=== PATIENT | male | born 1950 | race Caucasian/White ===

== ENCOUNTER 2017-06-19 20:20 | Emergency (ER) | payer MEDICARE, OTHER ==
[2017-06-19 20:37] VITALS: BP 125/87
[2017-06-19] MEDS ORDERED: SODIUM CHLORIDE 0.9% 1,000 ML IV ONE (20:44)
[2017-06-19] MEDS ORDERED: LOPERAMIDE 2 MG CAPSULE PO STA (20:44)
--- NOTE | 2017-06-19 20:45 | ED Physician Documentation ---
PD HPI NVD - Stated complaint Stated Complaint: DIARRHEA - Chief complaint Chief Complaint: Abd Pain - History obtained from History obtained from: Patient, Family - History of Present Illness Timing - onset: How many days ago (3) Timing - details: Gradual onset, Still present Associated symptoms: No: Abdominal pain, Chest pain Contributing factors: No: Sick contact, Bad food, Travel, Recent antibiotics, Alcohol use Similar symptoms before: Has not had sx before Recently seen: Not recently seen - Additonal information Additional information: Patient is a 67 year old male with no significant past medical history who is presenting to the emergency department for diarrhea. Patient states that the symptoms have been going on for the last two days. patient states that everything he eats or drinks comes right back out. patient reports tactile fevers on the first day, but nothing for the last two days. patient denies, nausea, vomiting or abdominal pain. Review of Systems Ten Systems: 10 systems reviewed and negative Constitutional: reports: Fever Cardiac: denies: Chest pain / pressure, Palpitations GI: reports: Diarrhea. denies: Abdominal Pain, Nausea, Vomiting : denies: Dysuria, Frequency Skin: denies: Rash, Lesions Immunocompromised: denies: Immunocompromised PD PAST MEDICAL HISTORY - Past Medical History Cardiovascular: Hypertension - Past Surgical History Past Surgical History: Yes General: Cholecystectomy HEENT: Tonsil/Adenoidectomy - Present Medications Home Medications: Ambulatory Orders Medication Instructions Recorded Confirmed HYDROcod/ACETAM 5/325 [[place] 5/325] 1 - 2 ea PO Q6H PRN #15 tablet 01/09/16 Ciprofloxacin HCl [Cipro] 500 mg PO BID #10 tablet 06/19/17 Metronidazole [Flagyl] 500 mg PO TID #15 tablet 06/19/17 - Allergies Allergies/Adverse Reactions: Allergies Allergy/AdvReac Type Severity Reaction Status Date / Time No Known Drug Allergies Allergy Verified 06/19/17 20:37 - Social History Does the pt smoke?: No Smoking Status: Former smoker Does the pt drink ETOH?: Yes Does the pt have substance abuse?: Yes - Immunizations Immunizations are current?: Yes PD ED PE NORMAL - General General: Alert and oriented X 3, No acute distress - HEENT HEENT: Atraumatic - Neck Neck: Supple, no meningeal sign - Cardiac Cardiac: RRR, No murmur - Respiratory Respiratory: No respiratory distress - Abdomen Abdomen: Soft, Non tender, Non distended - Derm Derm: Normal color, Warm and dry, No rash - Extremities Extremities: No deformity - Neuro Neuro: Alert and oriented X 3, No motor deficit, Normal speech Eye Opening: Spontaneous - Psych Psych: Normal mood PD ED PE EXPANDED - HEENT HEENT: Dry mucous membranes Results - Vitals Vitals: Vital Signs - 24 hr 06/19/17 20:35 Temperature 37.7 C H Heart Rate 92 Respiratory 17 Rate Blood Pressure 125/87 H O2 Saturation 99 Oxygen O2 Source Room air - Labs Labs: Laboratory Tests 06/19/17 06/19/17 21:00 21:00 WBC 4.7 L RBC 4.39 L Hgb 14.2 Hct 41.1 L MCV 93.6 MCH 32.3 H MCHC 34.5 RDW 13.0 Plt Count 160 MPV 8.2 Neut # 3.0 Lymph # 1.2 L [place] # 0.4 Eos # 0.1 Baso # 0.0 Absolute Nucleated RBC 0.00 Nucleated RBC % 0.1 Sodium 133 L Potassium 3.6 Chloride 101 Carbon Dioxide 21 Anion Gap 11.0 BUN 13 Creatinine 0.9 Estimated GFR (MDRD) 84 L Glucose 97 Calcium 9.0 Phosphorus 4.1 Magnesium 1.7 Total Bilirubin 1.1 H AST 18 ALT 25 Alkaline Phosphatase 44 Total Protein 6.9 Albumin 4.1 Globulin 2.8 Albumin/Globulin Ratio 1.5 Lipase 23 PD MEDICAL DECISION MAKING - ED course Complexity details: reviewed old records, reviewed results, re-evaluated patient , considered differential, d/w patient, d/w family ED course: patient was seen and examined at bedside. patient was well appearing and in no distress. Iv access was gained and labs were drawn. patient was treated with a fluid bolus. When patient's diagnostics came back they were within normal limits. Stool cultures were ordered but patient had not been able to have a bowel movement while in the emergency department. Antibiotics were written only if patient's symptoms lasted for more than 5 days. patient required no further work up and was stable for discharge with outpatient followup. Departure - Departure Disposition: 01 Home, Self Care Clinical Impression: Enteritis Condition: Good Instructions: ED Gastroenteritis Non Infec Follow-Up: Malia Brown MD [Primary Care Provider] - Within 3 Days Prescriptions: Ciprofloxacin HCl [Cipro] 500 mg PO BID #10 tablet Metronidazole [Flagyl] 500 mg PO TID #15 tablet Comments: Your diagnostics today were within normal limits. There were no major abnormalities on your blood work. It is important that you try to stay well hydrated with gatorade or other electrolyte solution. Most gastroenteritis is self limited and will get better in three to five days. If your symptoms last for more than 5 days you can start the antibiotics. Discharge Date/Time: 06/19/17 22:14
[2017-06-19 21:16] LABS: BASOPHILS % (AUTO) 0.4 %; EOSINOPHILS # (AUTO) 0.1 10^3/uL (0.0-0.7); EOSINOPHILS % (AUTO) 2.3 %; HGB - HEMOGLOBIN 14.2 g/dL (14.0-18.0); LYMPHOCYTES # (AUTO) 1.2 10^3/uL (1.5-3.5); MEAN CORPUSCULAR HEMOGLOBIN 32.3 pg (27.0-31.0); MEAN CORPUSCULAR HGB CONC 34.5 g/dL (32.0-36.0); MEAN CORPUSCULAR VOLUME 93.6 fL (80.0-94.0); MEAN PLATELET VOLUME 8.2 fL (7.4-11.4); MONOCYTES # (AUTO) 0.4 10^3/uL (0.0-1.0); MONOCYTES % (AUTO) 9.5 %; NEUTROPHILS % (AUTO) 62.8 %; PLT - PLATELET COUNT 160 10^3/uL (130-450); RED BLOOD COUNT 4.39 10^6/uL (4.70-6.10); WHITE BLOOD COUNT 4.7 x10^3/uL (4.8-10.8)
[2017-06-19 21:33] LABS: ALBUMIN 4.1 g/dL (3.2-5.5); ALBUMIN/GLOBULIN RATIO 1.5 (1.0-2.2); BILIRUBIN,TOTAL 1.1 mg/dL (0.2-1.0); CREATININE 0.9 mg/dL (0.6-1.2); MAGNESIUM 1.7 mg/dL (1.7-2.8); PHOSPHORUS 4.1 mg/dL (2.5-4.6); TOTAL PROTEIN 6.9 g/dL (6.7-8.2)
== END 2017-06-19 22:14 | disposition home or self-care (01) ==
LOC: ED 20:20
DX: K52.9 Noninfective gastroenteritis and colitis, unspecified (principal); I10 Essential (primary) hypertension; Z87.891 Personal history of nicotine dependence
CPT/HCPCS: 36415; 80053; 83690; 83735; 84100; 85025; 96360; 99283; A9270; 87177; 87209

== ENCOUNTER 2023-02-27 10:34 | Outpatient (CLI) | payer MEDICARE, OTHER ==
--- NOTE | 2023-03-02 01:59 | CT Report ---
PROCEDURE: Lung Cancer Screen INDICATIONS: SMOKER TECHNIQUE: A CT scan of the chest was performed. Intravenous contrast media was not administered. Images were re corded and evaluated at appropriate window settings. Reformats: axial MIP of the chest, coronal and s agittal. For radiation dose reduction, the following was used: automated exposure control, adjustment of mA and/or kV according to patient size. COMPARISON: None. FINDINGS: Image quality: Diagnostic. Prior cancer history: Unsure. Lungs and pleura: No pleural effusions. No pneumothorax. Mild emphysematous changes. Right lower lob e bronchiectasis and subpleural reticulation with areas of honeycombing. Scattered pulmonary nodules as follows: -Right upper lobe 7 mm solid pulmonary nodule (3/62, MIP image 32) -Left lower lobe 7 mm solid pulmonary nodule (3/22, MIP image 97) -Left lower lobe 9 mm nodule (3/56, MIP image 79) Mediastinum: Heart size is normal. No pericardial effusion. No large vessel abnormality. No mediastin al adenopathy by size criteria. Mild coronary artery calcifications. Chest wall and lower neck: Thyroid is unremarkable. No axillary or supraclavicular adenopathy by size . Bones: No aggressive osseous abnormality. Upper Abdomen: Cholecystectomy. Punctate splenic ossified granulomas likely reflecting prior granulom atous disease.. IMPRESSION: Multiple solid pulmonary nodules measuring up to 9 mm. Lung RAD: 4A - Suspicious. Recommendation: Follow up in 3 months with LDCT; PET/CT may be used when there is a "e8mm solid compo nent Non-Lung Significant Findings: Other Interstitial - ILD, Unknown. Consider pulmonology referral. Reviewed by: Juliana Sofia MD on 03/02/2023 1:57 AM PST Approved by: Juliana Sofia MD on 03/02/2023 1:57 AM PST Station ID: [id number]
== END 2023-02-27 10:35 | disposition home or self-care (01) ==
LOC: DI 10:34
PROVIDERS: ATTEND Physician Assistant Medical
DX: Z12.2 Encounter for screening for malignant neoplasm of respiratory organs (principal); R91.8 Other nonspecific abnormal finding of lung field; F17.210 Nicotine dependence, cigarettes, uncomplicated

== ENCOUNTER 2023-07-17 09:36 | Outpatient (CLI) | payer MEDICARE, OTHER ==
--- NOTE | 2023-07-17 14:23 | CT Report ---
PROCEDURE: Chest WO INDICATIONS: PULMONARY NODULE TECHNIQUE: A CT scan of the chest was performed. Intravenous contrast media was not administered. Images were re corded and evaluated at appropriate window settings. Reformats: axial MIP of the chest, coronal and s agittal. For radiation dose reduction, the following was used: automated exposure control, adjustment of mA and/or kV according to patient size. COMPARISON: 02/27/2023. FINDINGS: Image quality: Diagnostic. Chest wall and lower neck: No thyroid nodule which requires sonographic follow up. No axillary or sup raclavicular adenopathy by size. Lungs and pleura: Mild emphysematous changes are seen. Bronchiectasis and subpleural reticulation wit h areas of honeycombing involving lateral and posterior periphery of right lower lung zone is seen un changed from previous study. Previously described 7 mm solid nodule in right upper lobe is unchanged series 4 image 15. Previously described 9 mm left lower lobe solid nodule is also unchanged series 4 image 54. Previously described 7 mm left lower lobe nodule is also unchanged series 4 image 67. No new pulmonary nodule is seen. No pleural effusion or pneumothorax. Mediastinum: Heart size is mildly enlarged. No pericardial effusion. No large vessel abnormality. Ves emir coronary artery atherosclerotic calcifications are seen. No mediastinal adenopathy by size criter ia. Bones: No aggressive osseous abnormality. Upper Abdomen: Prior cholecystectomy. No abnormality is seen in visualized portion liver, spleen, and pancreas. IMPRESSION: 1. Previously described bilateral solid lung nodules are all stable in size. No new nodule is seen. Lung RADS category: 3, [address] chest follow-up is recommended. 2. Mild centrilobular emphysema and findings concerning for interstitial pulmonary fibrosis in right lower lung field unchanged from prior study. No pleural effusion or thorax. 3. No mediastinal lymphadenopathy by size criteria. Three-vessel coronary artery atherosclerotic dise ase. Reviewed by: Dixon Bose MD on 07/17/2023 2:21 PM PDT Approved by: Dixon Bose MD on 07/17/2023 2:21 PM PDT Station ID: [id number]
== END 2023-07-17 09:37 | disposition home or self-care (01) ==
LOC: DI 09:36
PROVIDERS: ATTEND Physician Assistant Medical
DX: R91.8 Other nonspecific abnormal finding of lung field (principal); J43.2 Centrilobular emphysema; I25.10 Atherosclerotic heart disease of native coronary artery without angina pectoris; F17.210 Nicotine dependence, cigarettes, uncomplicated

== ENCOUNTER 2023-07-24 09:47 | Outpatient (CLI) | payer MEDICARE, OTHER ==
[2023-07-24 15:25] LABS: BASOPHILS # (AUTO) 0.1 10^3/uL (0.0-0.1); BASOPHILS % (AUTO) 1.1 %; EOSINOPHILS # (AUTO) 0.2 10^3/uL (0.0-0.7); EOSINOPHILS % (AUTO) 3.9 %; HCT - HEMATOCRIT 41.5 % (42.0-52.0); HGB - HEMOGLOBIN 13.4 g/dL (14.0-18.0); LYMPHOCYTES # (AUTO) 1.2 10^3/uL (1.5-3.5); LYMPHOCYTES % (AUTO) 27.2 %; MEAN CORPUSCULAR HEMOGLOBIN 31.2 pg (27.0-31.0); MEAN CORPUSCULAR HGB CONC 32.3 g/dL (32.0-36.0); MEAN CORPUSCULAR VOLUME 96.7 fL (80.0-94.0); MEAN PLATELET VOLUME 10.8 fL (7.4-11.4); MONOCYTES # (AUTO) 0.4 10^3/uL (0.0-1.0); MONOCYTES % (AUTO) 7.9 %; NEUTROPHILS # (AUTO) 2.7 10^3/uL (1.5-6.6); NEUTROPHILS % (AUTO) 59.7 %; PLT - PLATELET COUNT 205 10^3/uL (130-450); RED BLOOD COUNT 4.29 10^6/uL (4.70-6.10); RED CELL DISTRIBUTION WIDTH 13.1 % (12.0-15.0); WHITE BLOOD COUNT 4.6 x10^3/uL (4.8-10.8)
[2023-07-24 15:59] LABS: ALBUMIN 4.4 g/dL (3.2-5.5); ALBUMIN/GLOBULIN RATIO 2.2 (1.0-2.2); ALKALINE PHOSPHATASE 72 IU/L (42-121); ALT ALANINE AMINOTRANSFERASE 23 IU/L (10-60); AST ASPARTATE AMINOTRANSFERASE 22 IU/L (10-42); BILIRUBIN,TOTAL 0.9 mg/dL (0.2-1.0); BUN - BLOOD UREA NITROGEN 16 mg/dL (6-20); CALCIUM 9.3 mg/dL (8.5-10.3); CARBON DIOXIDE - CO2 27 mmol/L (21-32); CHLORIDE 106 mmol/L (101-111); CHOL/HDL RATIO 2.6 (<5.0); CHOLESTEROL 193 mg/dL; CREATININE 0.8 mg/dL (0.6-1.3); GFR - MDRD 94 (>89); GLUCOSE 83 mg/dL (74-104); HDL CHOLESTEROL 75 mg/dL; LDL CHOLESTEROL,CALCULATED 107 mg/dL; LDL/HDL RATIO 1.4 (<3.6); POTASSIUM 4.3 mmol/L (3.5-4.5); SODIUM 140 mmol/L (135-145); TOTAL PROTEIN 6.4 g/dL (6.4-8.9); TRIGLYCERIDES 56 mg/dL (48-352); VLDL CHOLESTEROL 11 mg/dL
== END 2023-07-24 09:48 | disposition home or self-care (01) ==
LOC: LAB.S 09:47
PROVIDERS: ATTEND Registered Nurse
DX: Z12.5 Encounter for screening for malignant neoplasm of prostate (principal); Z13.228 Encounter for screening for other metabolic disorders; Z13.220 Encounter for screening for lipoid disorders; Z13.0 Encounter for screening for diseases of the blood and blood-forming organs and certain disorders involving the immune mechanism
CPT/HCPCS: 36415; 80053; 80061; 85025; G0103; 83721; 84153

== ENCOUNTER 2023-09-21 14:58 | Outpatient (CLI) | payer MEDICARE, OTHER | END 2023-09-21 14:59 | disposition home or self-care (01) | LOC: LAB.S 14:58 | PROVIDERS: ATTEND Registered Nurse | DX: Z12.5 Encounter for screening for malignant neoplasm of prostate (principal); Z13.228 Encounter for screening for other metabolic disorders; Z13.220 Encounter for screening for lipoid disorders; Z13.29 Encounter for screening for other suspected endocrine disorder; Z13.0 Encounter for screening for diseases of the blood and blood-forming organs and certain disorders involving the immune mechanism | CPT/HCPCS: 36415; 80053; 80061; 83721; 84153; 84443; 85025 ==

== ENCOUNTER 2023-09-21 15:33 | Outpatient (CLI) | payer MEDICARE, OTHER | END 2023-09-21 15:34 | disposition home or self-care (01) | LOC: LAB.S 15:33 | PROVIDERS: ATTEND Registered Nurse | DX: R53.83 Other fatigue (principal) | CPT/HCPCS: 36415; 84403 ==

== ENCOUNTER 2023-10-12 07:53 | Day surgery (SDC) | payer MEDICARE, OTHER ==
[2023-10-12] MEDS: LACTATED RINGERS 1,000 ML IV ONE (08:38)
--- NOTE | 2023-10-12 08:50 | ANESTHESIA ---
Pre-Anesthesia VS, & Labs - Diagnosis SCREENING - Procedure COLONOSCOPY Vital Signs: Temp Pulse Resp BP Pulse Ox O2 Flow Rate 36.0 C L 59 L 14 120/83 H 99 10/12/23 08:39 10/12/23 08:39 10/12/23 08:39 10/12/23 08:39 10/12/23 08:39 Height: 5 ft 9 in Weight (kg): 88.1 kg Body Mass Index: 28.6 BMI Classification: Overweight - NPO >8 hours (BOWEL PREP COMPLETED) Home Medications and Allergies Home Medications: Ambulatory Orders Cholecalciferol [Vitamin D3] 50 mcg PO DAILY 10/06/23 Glucos Sul 2Kcl/MSM/Chond/C/Mn [Glucosamine Chondroitin Cap] 1 each PO DAILY 10/06/23 Ibuprofen [Motrin] 600 mg PO Q6H PRN 10/06/23 Lisinopril [Zestril] 40 mg PO DAILY 10/06/23 Magnesium 250 mg PO DAILY 10/06/23 Multivitamin 1 each PO DAILY 10/06/23 [place]-3/Dha/Epa/Fish Oil [Fish Oil 1,000 mg Softgel] 1 each PO DAILY 10/06/23 Cholecalciferol [Vitamin D3] 50 mcg PO DAILY 10/06/23 Glucos Sul 2Kcl/MSM/Chond/C/Mn [Glucosamine Chondroitin Cap] 1 each PO DAILY 10/06/23 Ibuprofen [Motrin] 600 mg PO Q6H PRN 10/06/23 Lisinopril [Zestril] 40 mg PO DAILY 10/06/23 Magnesium 250 mg PO DAILY 10/06/23 Multivitamin 1 each PO DAILY 10/06/23 [place]-3/Dha/Epa/Fish Oil [Fish Oil 1,000 mg Softgel] 1 each PO DAILY 10/06/23 Allergies/Adverse Reactions: Allergies Allergy/AdvReac Type Severity Reaction Status Date / Time No Known Drug Allergies Allergy Verified 06/19/17 20:37 Anes History & Medical History - Anesthetic History Anesthesia Complications: reports: No previous complications Family history of Anesthesia Complications: Denies Family history of Malignant Hyperthermia: Denies - Medical History Cardiovascular: reports: Hypertension, Murmur Pulmonary: reports: Other (SMOKED FOR 40 YEARS; X-SMOKER NOW; REMOVED MIDDLE LOBE AND HALF THE LOWER LOBE SURGICALLY IN 1965 DT HISTOPLASMOSIS FUNGUS) Gastrointestinal: reports: Colon polyps, Pancreatitis Urinary: reports: None Neuro: reports: None Musculoskeletal: reports: Osteoarthritis Endocrine/Autoimmune: reports: None Blood Disorders: reports: None Skin: reports: Eczema Smoking Status: Former smoker Psychosocial: reports: Alcohol (2-3 DRINKS OF WINE A NIGHT; SOMETIMES WHISKEY) History of Cancer?: No - Surgical History General: reports: Cholecystectomy, Colonoscopy, Other Eyes Ears Nose Throat (EENT): reports: Cataracts, Tonsil/Adenoidectomy Urologic: reports: Bladder surgery Neurologic: Orthopedic: reports: Shoulder arthroplasty Results - EKG Results EKG Comparison: Reviewed EKG, Normal EKG Exam General: Alert, Oriented x3, Cooperative, No acute distress Mouth Opening: Greater than 4 Fingerbreadths Neck Mobility: Normal Mallampati classification: II Thyromental Distance: 4-6 cm Mental/Cognitive Status: Alert/Oriented X3, Normal for patient Cognitive Status: Within normal limits Plan Anesthesia Type: General Consent for Procedure(s) Verified and Reviewed: Yes Code Status: Attempt Resuscitation ASA classification: 3-Severe systemic disease Is this case an emergency?: No
[2023-10-12] MEDS ORDERED: PROPOFOL 500 MG/50 ML 500 MG/50 ML VIAL ONE (08:57)
[2023-10-12] MEDS: LACTATED RINGERS 800 ML IV ONE (09:50)
[2023-10-12 10:17] VITALS: BP 128/81; O2SAT 98
--- NOTE | 2023-10-12 15:23 | ANESTHESIA POST OP EVALUATION ---
Anesthesia Post Eval - Post Anesthesia Eval Vitals: Last Vital Signs Temp 36.4 C L 10/12/23 10:06 Pulse 65 10/12/23 10:06 Resp 16 10/12/23 10:06 BP 128/81 H 10/12/23 10:06 Pulse Ox 98 10/12/23 10:06 O2 Flow Rate CV Function Including HR & BP: Stable Pain Control: Satisfactory Nausea & Vomiting: Negative Mental Status: Baseline Respiratory Status: Airway Patent Hydration Status: Satisfactory Anesthesia Complications: None
== END 2023-10-12 07:54 | disposition home or self-care (01) ==
LOC: SDS 07:53
PROVIDERS: ATTEND Surgery
DX: Z12.11 Encounter for screening for malignant neoplasm of colon (principal); K57.30 Diverticulosis of large intestine without perforation or abscess without bleeding; K64.1 Second degree hemorrhoids; Z87.891 Personal history of nicotine dependence
CPT/HCPCS: G0121; J7120